=== PATIENT | female | born 1990 | race Caucasian/White ===

== ENCOUNTER 2017-04-03 10:24 | Emergency (ER) | payer OTHER ==
[2017-04-03 10:40] VITALS: BP 111/61
--- NOTE | 2017-04-03 11:19 | UC ---
Throat Pain/Nasal Chava HPI - HPI Summary HPI Summary: 22 yo female with sore throat and fever x 1 day no n/v/d hx DM type 1 PCN and Ceph allergy - History of Current Complaint Chief Complaint: UCRespiratory Stated Complaint: THROAT,FEVER Time Seen by Provider: 04/03/17 10:42 Hx Obtained From: Patient Hx Last Menstrual Period: 03/22/17 Onset/Duration: Gradual Onset, Lasting Hours Severity: Moderate Pain Intensity: 4 Pain Scale Used: 0-10 Numeric Cough: None Associated Signs & Symptoms: Positive: Fever Related History: Prior ENT Surgery - thyroid nodule - Epiglottits Risk Factors Epiglottis Risk Factors: Negative - Allergies/Home Medications Allergies/Adverse Reactions: Allergies Allergy/AdvReac Type Severity Reaction Status Date / Time Amoxicillin Allergy Intermediate Rash Verified 04/03/17 10:40 Vancomycin Allergy Intermediate redness/itc Verified 04/03/17 10:40 bronson Cefaclor [From Ceclor] Allergy Unknown "swelling Verified 04/03/17 10:40 of blood vessels" PMH/Surg Hx/FS Hx/Imm Hx Previously Healthy: Yes Endocrine History: Diabetes - Surgical History Surgical History: Yes Surgery Procedure, Year, and Place: x2. partial thyroidectomy 03/02 - Family History Known Family History: Positive: Diabetes, Other - Mom asthma Negative: Cardiac Disease, Hypertension - Social History Alcohol Use: Rare Substance Use Type: None Smoking Status (MU): Light Every Day Tobacco Smoker Type: Cigarettes Amount Used/How Often: 1-2cig per day Household Exposure Type: Cigarettes - Immunization History Most Recent Influenza Vaccination: yes [id number] Review of Systems Constitutional: Fever Skin: Negative Eyes: Negative ENT: Sore Throat Respiratory: Negative Cardiovascular: Negative Gastrointestinal: Negative Genitourinary: Negative Motor: Negative Neurovascular: Negative Musculoskeletal: Negative Neurological: Negative Psychological: Negative All Other Systems Reviewed And Are Negative: Yes Physical Exam Triage Information Reviewed: Yes Appearance: Well-Appearing, No Pain Distress, Well-Nourished Vital Signs: Initial Vital Signs Temp 99 F 04/03/17 10:35 Pulse 100 04/03/17 10:35 Resp 16 04/03/17 10:35 BP 111/61 04/03/17 10:35 Pulse Ox 99 04/03/17 10:35 Vital Signs Reviewed: Yes Eyes: Positive: Conjunctiva Clear ENT: Positive: Hearing grossly normal, Pharyngeal erythema, Tonsillar swelling. Negative: Nasal congestion, Nasal drainage, Tonsillar exudate, Trismus, Muffled/hoarse voice Neck: Positive: Supple, Nontender, Enlarged Nodes @ - ant cerv (mild) Respiratory: Positive: Lungs clear, Normal breath sounds, No respiratory distress Cardiovascular: Positive: RRR, No Murmur Musculoskeletal: Positive: ROM Intact, No Edema Neurological: Positive: Alert Psychological Exam: Normal Skin Exam: Normal Throat Pain/Nasal Course/Dx - Course Course Of Treatment: RS (+) - Differential Dx/Diagnosis Provider Diagnoses: strep throat Discharge - Discharge Plan Condition: Stable Disposition: HOME Prescriptions: Clarithromycin TAB* [Biaxin 500 MG TAB*] 500 mg PO BID #20 tab Patient Education Materials: Strep Throat (ED) Forms: *Work Release Referrals: Clarice Danielle PA [Primary Care Provider] - Additional Instructions: recheck in 3 days if not better
== END 2017-04-03 11:21 | disposition home or self-care (01) ==
LOC: UCCORT 10:24
DX: J02.0 Streptococcal pharyngitis (principal); E10.8 Type 1 diabetes mellitus with unspecified complications; Z88.1 Allergy status to other antibiotic agents; E89.0 Postprocedural hypothyroidism; F17.210 Nicotine dependence, cigarettes, uncomplicated
CPT/HCPCS: 87651; 99212; G0463

== ENCOUNTER 2017-04-11 10:18 | Emergency (ER) | payer OTHER ==
--- NOTE | 2017-04-11 11:46 | UC ---
Throat Pain/Nasal Chava HPI - HPI Summary HPI Summary: here on 04/03 and diagnosed with strep throat, is on clindamycin for it. States pain went away for 3-4 days, but now pain returning. (+) strep here with Dr Arvizu and now with throat pain denies previous mono [ End ] - History of Current Complaint Chief Complaint: UCRespiratory Stated Complaint: RECHECK THROAT Time Seen by Provider: 04/11/17 11:44 Hx Obtained From: Patient Hx Last Menstrual Period: 03/24/17 Cough: Nonproductive - Allergies/Home Medications Allergies/Adverse Reactions: Allergies Allergy/AdvReac Type Severity Reaction Status Date / Time Amoxicillin Allergy Intermediate Rash Verified 04/11/17 11:30 Vancomycin Allergy Intermediate redness/itc Verified 04/11/17 11:30 bronson Cefaclor [From Ceclor] Allergy Unknown "swelling Verified 04/11/17 11:30 of blood vessels" Home Medications: Home Medications Acetaminophen [Tylenol] 4 tab PO ONCE PRN 04/11/17 [History Confirmed 04/11/17] Ibuprofen [Advil] 600 mg PO ONCE PRN 04/11/17 [History Confirmed 04/11/17] PMH/Surg Hx/FS Hx/Imm Hx Previously Healthy: Yes - Surgical History Surgical History: Yes Surgery Procedure, Year, and Place: x2. partial thyroidectomy 03/02 - Family History Known Family History: Positive: Diabetes, Other - Mom asthma Negative: Cardiac Disease, Hypertension - Social History Occupation: Employed Full-time Lives: With Family Alcohol Use: Rare Substance Use Type: None Smoking Status (MU): Former Smoker Type: Cigarettes Amount Used/How Often: 1-2cig per day Have You Smoked in the Last Year: Yes When Did the Patient Quit Smoking/Using Tobacco: 1 month ago Household Exposure Type: Cigarettes - Immunization History Most Recent Influenza Vaccination: yes [id number] season Review of Systems Constitutional: Fatigue Skin: Negative Eyes: Negative ENT: Sore Throat Respiratory: Negative Cardiovascular: Negative Gastrointestinal: Negative Genitourinary: Negative Motor: Negative Neurovascular: Negative Musculoskeletal: Negative Neurological: Negative Psychological: Negative All Other Systems Reviewed And Are Negative: Yes Physical Exam Triage Information Reviewed: Yes Appearance: Well-Appearing, No Pain Distress Vital Signs: Initial Vital Signs Temp 98.2 F 04/11/17 11:34 Pulse 85 04/11/17 11:34 Resp 16 04/11/17 11:34 BP 113/62 04/11/17 11:34 Pulse Ox 99 04/11/17 11:34 Vital Signs Reviewed: Yes Eye Exam: Normal ENT Exam: Normal ENT: Positive: Pharyngeal erythema, TMs normal. Negative: Tonsillar exudate Dental Exam: Normal Neck exam: Normal Neck: Positive: Supple, Enlarged Nodes @ - right anterior cervical, Other: - neg kernig Respiratory Exam: Normal Cardiovascular Exam: Normal Abdominal Exam: Normal Musculoskeletal Exam: Normal Neurological Exam: Normal Psychological Exam: Normal Skin Exam: Normal Throat Pain/Nasal Course/Dx - Course Course Of Treatment: see d/c instructions --- resistance to clinda ? mono ? check labs - Differential Dx/Diagnosis Differential Diagnosis/HQI/PQRI: Laryngitis, Mononucleosis, Pharyngitis, Sinusitis, Tonsillitis, URI Provider Diagnoses: Pharyngitis Discharge - Discharge Plan Condition: Good Disposition: HOME Prescriptions: Azithromyxin MAXIMILIANO (NF) [Z-Maximiliano (Zithromax) 250 mg tabs #6] 2 tab PO .TODAY, THEN 1 DAILY #6 tab Magic Mouth Was-ADITI/MAAL/LIDO* 5 ml SWISH SPIT QID #100 ml Patient Education Materials: Pharyngitis (ED) Forms: *Work Release Referrals: Clarice Danielle PA [Primary Care Provider] - 3 Days Additional Instructions: As we discussed you are bring treated for strep at this time but have a sore throat therefore we are testing for you for mono. If your mono test is (+) then you have a viral illness and no antibiotics can help. If your mono test is negative and you still have pain at the completion of antibiotics then you at that time may start the z pack,
[2017-04-11 11:49] VITALS: BP 113/62
[2017-04-11 14:02] LABS: Hematocrit 40 % (35-47); Hemoglobin 13.1 g/dl (12.0-16.0); Mean Corpuscular HGB Conc 33 g/dl (31-36); Mean Corpuscular Hemoglobin 30 pg (27-31); Mean Corpuscular Volume 90 fL (80-97); Mean Platelet Volume 8 um3 (7.4-10.4); Red Blood Count 4.38 10^6/ul (4.0-5.4); Red Cell Distribution Width 13 % (10.5-15); White Blood Count 7.3 10^3/ul (3.5-10.8)
[2017-04-11 14:07] LABS: Add Diff/Slide Review? Slide Review Added; Comments Flag Yes
[2017-04-11 14:36] LABS: Albumin 3.9 g/dL (3.2-5.2); BUN/Creatinine Ratio 16.4 (8-20); Calcium 8.4 mg/dL (8.6-10.3); EGFR African American 137.9 (>60); EGFR Non-African American 107.2 (>60); Globulin 2.4 g/dL (2-4); Potassium 4.5 mmol/L (3.5-5.0); Total Bilirubin 0.4 mg/dL (0.2-1.0); Total Protein 6.3 g/dL (6.4-8.9)
[2017-04-11 17:39] LABS: Mono Internal Control QC Line Present
--- NOTE | 2017-04-12 10:32 | UC ---
Progress - Progress Note Progress Note: CALL PATIENT. ELEVATED GLUCOSE. FOLLOW UP WITH PCP/ER.
== END 2017-04-11 12:26 | disposition home or self-care (01) ==
LOC: UCCORT 10:18
DX: J02.9 Acute pharyngitis, unspecified (principal); E89.0 Postprocedural hypothyroidism; Z88.1 Allergy status to other antibiotic agents; Z87.891 Personal history of nicotine dependence
CPT/HCPCS: 36415; 80053; 85025; 86308; 86663; 99212; G0463

== ENCOUNTER 2017-08-14 20:55 | Emergency (ER) | payer OTHER ==
--- NOTE | 2017-08-14 21:24 | UC ---
Lower Extremity/Ankle HPI - HPI Summary HPI Summary: 27 YEAR OLD FEMALE PRESENTS WITH LEFT ANKLE PAIN WITH NO TRAUMA. - History of Current Complaint Stated Complaint: LEFT ANKLE PAIN Time Seen by Provider: 08/14/17 20:58 Hx Obtained From: Patient Hx Last Menstrual Period: 03/24/17 Onset/Duration: Sudden Onset Severity Initially: Moderate Severity Currently: Moderate Pain Scale Used: 0-10 Numeric - 4 - Allergies/Home Medications Allergies/Adverse Reactions: Allergies Allergy/AdvReac Type Severity Reaction Status Date / Time Amoxicillin Allergy Intermediate Rash Verified 08/14/17 21:33 Vancomycin Allergy Intermediate redness/itc Verified 08/14/17 21:33 bronson Cefaclor [From Ceclor] Allergy Unknown "swelling Verified 08/14/17 21:33 of blood vessels" PMH/Surg Hx/FS Hx/Imm Hx Previously Healthy: Yes - Surgical History Surgical History: Yes Surgery Procedure, Year, and Place: x2. partial thyroidectomy 03/02 - Family History Known Family History: Positive: Diabetes, Other - Mom asthma Negative: Cardiac Disease, Hypertension - Social History Alcohol Use: Rare Substance Use Type: None Smoking Status (MU): Former Smoker Type: Cigarettes Amount Used/How Often: 1-2cig per day Have You Smoked in the Last Year: Yes When Did the Patient Quit Smoking/Using Tobacco: 1 month ago Household Exposure Type: Cigarettes - Immunization History Most Recent Influenza Vaccination: yes [id number] Review of Systems Constitutional: Negative Skin: Negative Eyes: Negative ENT: Negative Respiratory: Negative Cardiovascular: Negative Gastrointestinal: Negative Genitourinary: Negative Motor: Negative Neurovascular: Negative Musculoskeletal: Other: - left ankle pain Neurological: Negative Psychological: Negative All Other Systems Reviewed And Are Negative: Yes Physical Exam Triage Information Reviewed: Yes Vital Signs Reviewed: Yes Eye Exam: Normal ENT Exam: Normal Dental Exam: Normal Neck exam: Normal Neck: Positive: 1 Respiratory Exam: Normal Cardiovascular Exam: Normal Abdominal Exam: Normal Musculoskeletal: Positive: Other: - left ankle pain Neurological Exam: Normal Psychological Exam: Normal Skin Exam: Normal Lower Extremity Course/Dx - Differential Dx/Diagnosis Provider Diagnoses: left ankle sprain Discharge - Discharge Plan Condition: Stable Disposition: HOME Prescriptions: Ibuprofen TAB* [Motrin TAB* 800 MG] 800 mg PO Q6H #30 tab Patient Education Materials: Ankle Sprain (ED) Forms: *Work Release Referrals: Terry Peña MD [Medical Doctor] - Dylan Moran [Physical Therapist] - Clarice Danielle PA [Primary Care Provider] -
--- NOTE | 2017-08-14 21:25 | RAD ---
INDICATION: Left ankle injury COMPARISON: None TECHNIQUE: AP, lateral, and oblique views were obtained. FINDINGS: The bony structures, joint spaces, and soft tissues are normal for age. IMPRESSION: NEGATIVE EXAMINATION.
[2017-08-14 21:33] VITALS: BP 121/77
== END 2017-08-14 21:50 | disposition home or self-care (01) ==
LOC: UCCORT 20:55
DX: S93.402A Sprain of unspecified ligament of left ankle, initial encounter (principal); X58.XXXA Exposure to other specified factors, initial encounter; Y93.9 Activity, unspecified; Y92.9 Unspecified place or not applicable; Z88.1 Allergy status to other antibiotic agents; Z87.891 Personal history of nicotine dependence
CPT/HCPCS: 99212; G0463

== ENCOUNTER 2017-09-24 12:30 | Emergency (ER) | payer OTHER ==
[2017-09-24 14:35] VITALS: BP 114/60
--- NOTE | 2017-09-24 14:52 | UC ---
Respiratory Complaint HPI - HPI Summary HPI Summary: Pt c/o productive cough, nasal congestion X 1 week. Denies fever SOB, wheezing or hemoptysis - History of Current Complaint Chief Complaint: UCRespiratory Stated Complaint: COUGH,NAUSEA Time Seen by Provider: 09/24/17 14:36 Hx Obtained From: Patient Hx Last Menstrual Period: unknown ?: No Onset/Duration: Gradual Onset, Lasting Weeks - 1, Still Present Severity Initially: Mild Severity Currently: Mild Character: Cough: Productive, Sputum Description: - yellow Aggravating Factors: Recumbent Position Associated Signs And Symptoms: Positive: Wheezing, URI, Nasal Congestion - Risk Factors Pulmonary Embolism Risk Factors: Negative Cardiac Risk Factors: Negative Pseudomonas Risk Factors: Negative Tuberculosis Risk Factors: Negative - Allergies/Home Medications Allergies/Adverse Reactions: Allergies Allergy/AdvReac Type Severity Reaction Status Date / Time Amoxicillin Allergy Intermediate Rash Verified 09/24/17 14:35 Vancomycin Allergy Intermediate redness/itc Verified 09/24/17 14:35 bronson Cefaclor [From Ceclor] Allergy Unknown "swelling Verified 09/24/17 14:35 of blood vessels" Ethanol [From Robitussin] AdvReac Nausea Verified 09/24/17 14:43 Guaifenesin [From Robitussin] AdvReac Nausea Verified 09/24/17 14:43 Home Medications: Home Medications Dextromethorphan-Phenylephrine [Robitussin Cold+Flu Dayti 10-5-325 mg] 1 dose PO DAILY PRN 09/24/17 [History Confirmed 09/24/17] PMH/Surg Hx/FS Hx/Imm Hx Previously Healthy: Yes Endocrine History: Diabetes - Surgical History Surgical History: Yes Surgery Procedure, Year, and Place: x2. partial thyroidectomy 03/02 - Family History Known Family History: Positive: Diabetes, Other - Mom asthma Negative: Cardiac Disease, Hypertension - Social History Occupation: Employed Full-time Lives: With Family Alcohol Use: Rare Substance Use Type: None Smoking Status (MU): Former Smoker Type: Cigarettes Amount Used/How Often: 1-2cig per day Have You Smoked in the Last Year: Yes When Did the Patient Quit Smoking/Using Tobacco: 1 month ago Household Exposure Type: Cigarettes - Immunization History Most Recent Influenza Vaccination: yes [id number] Vaccination Up to Date: No Review of Systems Constitutional: Negative Skin: Negative Eyes: Negative ENT: Negative Respiratory: Cough Cardiovascular: Negative Gastrointestinal: Negative Genitourinary: Negative Motor: Negative Neurovascular: Negative Musculoskeletal: Negative Neurological: Negative Psychological: Negative Is Patient Immunocompromised?: No All Other Systems Reviewed And Are Negative: Yes Physical Exam Triage Information Reviewed: Yes Appearance: Well-Appearing Vital Signs: Initial Vital Signs Temp 98.1 F 09/24/17 14:26 Pulse 70 09/24/17 14:26 Resp 18 09/24/17 14:26 BP 114/60 09/24/17 14:26 Pulse Ox 97 09/24/17 14:26 Vital Signs Reviewed: Yes Eye Exam: Normal ENT Exam: Normal ENT: Positive: Nasal congestion Dental Exam: Normal Neck exam: Normal Respiratory Exam: Normal Cardiovascular Exam: Normal Musculoskeletal Exam: Normal Neurological Exam: Normal Psychological Exam: Normal Skin Exam: Normal UC Diagnostic Evaluation - Laboratory O2 Sat by Pulse Oximetry: 97 Respiratory Course/Dx - Differential Dx/Diagnosis Differential Diagnosis/HQI/PQRI: Bronchitis, Other - URI Provider Diagnoses: URI. Cough Discharge - Discharge Plan Condition: Stable Disposition: HOME Prescriptions: Albuterol HFA INHALER* [Ventolin HFA Inhaler*] 1 - 2 puff INH Q6H PRN #1 mdi PRN Reason: Sob/Wheezing Benzonatate CAP* [Tessalon 100 MG CAP*] 100 mg PO Q8H PRN #15 cap PRN Reason: Cough predniSONE TAB* [Deltasone TAB*] 30 mg PO DAILY #12 tab Patient Education Materials: Acute Cough (ED) Forms: *Work Release Referrals: Tanya Ernst MD [Primary Care Provider] - If Needed
== END 2017-09-24 15:02 | disposition home or self-care (01) ==
LOC: UCCORT 12:30
DX: J06.9 Acute upper respiratory infection, unspecified (principal); R05 Cough; Z87.891 Personal history of nicotine dependence; Z77.22 Contact with and (suspected) exposure to environmental tobacco smoke (acute) (chronic)
CPT/HCPCS: 99212; G0463

== ENCOUNTER 2017-11-25 21:00 | Emergency (ER) | payer OTHER ==
--- OUTSIDE RECORDS SUMMARY | 2017-11-25 21:09 | XMS REPORT ---
:1990 External Reference #:[id number] Author Organization [facility] Address [address] [place] [id number] Phone [phone] Care Team Providers Name Role Phone Aretha Campuzano M.D. Primary Care Physician Unavailable Payers Type Date Identification Numbers Payment Provider Subscriber Commercial Effective: Policy Number: Jamin Azar 2009 [id number] mobintent Group Number: ABY # [id number] [address] Group Name: [id number] [place] [address] PayID: [id number] Problems Description No Information Social History Description No Information Available Allergies, Adverse Reactions, Alerts Date Description Reaction Status Severity Comments 04/25/2010 ceclor active 04/25/2010 Amoxicillin active Medications Description No Information Medications Administered in Office Medication Date Status Form Strength Qnty SIG Indications Ordering Provider Injection Administered Injection Dede Gutierrez M.D. Injection Administered Injection Dede Gutierrez M.D. Injection Administered Injection Dede Gutierrez M.D. Injection Administered Injection Dede Gutierrez M.D. Injection Administered Injection Dede Gutierrez M.D. Injection Administered Injection Dede Gutierrez M.D. Injection Administered Injection Dede Gutierrez M.D. Injection Administered Injection Dede M Fausto Gutierrez M.D. Results Description No Information Procedures Date CPT Code Description Status 01/18/2011 61388 Injection Completed 07/13/2010 37345 Injection Completed 07/06/2010 84209 Injection Completed 06/22/2010 66481 Injection Completed 06/15/2010 63511 Injection Completed 06/08/2010 79799 Injection Completed 06/01/2010 00972 Injection Completed 05/25/2010 80989 Injection Completed 05/23/2010 60562 Extract 1-10 Completed 05/02/2010 90029 Skin Test Scratch # Of Units ____ Completed 04/25/2010 16806 Pre PFT Completed Encounters Type Date Location Provider CPT E/M Dx Office Visit 04/25/2010 1:20p [facility] Dede Gutierrez M.D. [id number] [phone] V15.04 493.90 Plan of Care Future Appointment(s):11/21/2017 1:20 pm - Kael Snyder M.D. at [facility]
[2017-11-25 21:23] VITALS: BP 126/80
--- NOTE | 2017-11-25 21:26 | UC ---
Throat Pain/Nasal Hcava HPI - HPI Summary HPI Summary: 27 female presents to with complaints of sore throat, nasal congestion, headache and feeling "Congested" for the past week. Has been taking cold and sinus OTC medications and ibuprofen with some relief. No fever/chills. Children have been sick. Mild cough with some production. No other complaints. PMHx includes Type I DM and thyroid disease. IS concerned she has strep and would like to be tested. - History of Current Complaint Chief Complaint: UCGeneralIllness Stated Complaint: THROAT COMPLAINT Time Seen by Provider: 11/25/17 21:07 Hx Obtained From: Patient Hx Last Menstrual Period: 2 WKS AGO Onset/Duration: Sudden Onset, Lasting Days, Still Present Severity: Moderate Pain Intensity: 6 Pain Scale Used: 0-10 Numeric Cough: Productive Associated Signs & Symptoms: Positive: Dysphagia, Sinus Discomfort, Nasal Discharge, Other - ear ache bilateral - Allergies/Home Medications Allergies/Adverse Reactions: Allergies Allergy/AdvReac Type Severity Reaction Status Date / Time amoxicillin Allergy Rash Verified 11/25/17 21:13 cefaclor Allergy Unknown Verified 11/25/17 21:13 Reaction Details guaifenesin [From Robitussin] Allergy Nausea Verified 11/25/17 21:13 shellfish derived Allergy Hives Verified 11/25/17 21:13 vancomycin Allergy Rash And Verified 11/25/17 21:13 Itching Home Medications: Home Medications Levothyroxine Sodium [Synthroid] 200 mcg PO DAILY 11/25/17 [History Confirmed ] PMH/Surg Hx/FS Hx/Imm Hx Endocrine History: Diabetes - type I, Thyroid Disease Psychological History: Anxiety, Depression - Surgical History Surgical History: Yes Surgery Procedure, Year, and Place: x2. partial thyroidectomy 03/02 - Family History Known Family History: Positive: Diabetes, Other - Mom asthma Negative: Cardiac Disease, Hypertension - Social History Alcohol Use: Rare Substance Use Type: None Smoking Status (MU): Former Smoker Type: Cigarettes Amount Used/How Often: 1-2cig per day Have You Smoked in the Last Year: Yes When Did the Patient Quit Smoking/Using Tobacco: 9 M0S Household Exposure Type: Cigarettes - Immunization History Most Recent Influenza Vaccination: yes [id number] season Vaccination Up to Date: No Review of Systems Constitutional: Negative ENT: Sore Throat, Ear Ache, Nasal Discharge Respiratory: Cough Cardiovascular: Negative Gastrointestinal: Negative Neurological: Headache All Other Systems Reviewed And Are Negative: Yes Physical Exam Triage Information Reviewed: Yes Appearance: Well-Appearing - sounds congested/slightly hoarse when speaking, No Pain Distress, Well-Nourished Vital Signs: Initial Vital Signs Temp 97.7 F 11/25/17 21:16 Pulse 91 11/25/17 21:16 Resp 18 11/25/17 21:16 BP 126/80 11/25/17 21:16 Pulse Ox 100 11/25/17 21:16 Vital Signs Reviewed: Yes Eyes: Positive: Conjunctiva Clear ENT: Positive: Hearing grossly normal, Pharyngeal erythema, TMs normal - serous effusion mild bl TM, Uvula midline. Negative: TM bulging, TM dull, TM red, Tonsillar swelling, Tonsillar exudate Dental: Negative: Percussion Tenderness @, Cervical Lymphadenopathy Neck: Positive: Supple, Nontender, No Lymphadenopathy Respiratory: Positive: Chest non-tender, Lungs clear, Normal breath sounds, No respiratory distress, No accessory muscle use Cardiovascular: Positive: RRR, No Murmur, Pulses Normal Abdomen Description: Positive: Nontender, Soft Bowel Sounds: Positive: Present Musculoskeletal: Positive: Strength Intact Neurological Exam: Normal Skin Exam: Normal Throat Pain/Nasal Course/Dx - Course Course Of Treatment: strep culture obtianed and negative. normal vitals. appears to be suffering URI. suggested symptomatic measures, saline rinses, flonase, ibuprofen, claritinD fluids rest and vitamins. aware of worsening signs and symptoms to watch out for. no other concerns at this time. follow up. - Differential Dx/Diagnosis Differential Diagnosis/HQI/PQRI: Mononucleosis, Pharyngitis, URI Provider Diagnoses: URI Discharge - Discharge Plan Condition: Good Disposition: HOME Prescriptions: Fluticasone NASAL SPRAY 50MCG* [Flonase NASAL SPRAY 50MCG*] 2 spray BOTH NARES DAILY #1 btl Patient Education Materials: Upper Respiratory Infection (ED) Forms: *Work Release Referrals: Tanya Ernst MD [Primary Care Provider] - Additional Instructions: Increase fluid intake, get plenty of rest. Chloraseptic spray to help soothe sore throat. Salt water gargles, vitamins. Recommend mucinex and/or claritin to help with congestion. Nasal spray, as prescribed, to help with nasal congestion. Extra pillow at bedtime, hot showers. Follow up with PCP. Any new or worsening symptoms please seek medical attention, as discussed.
== END 2017-11-25 21:49 | disposition home or self-care (01) ==
LOC: UCCORT 21:00
DX: J06.9 Acute upper respiratory infection, unspecified (principal); E10.9 Type 1 diabetes mellitus without complications; Z96.41 Presence of insulin pump (external) (internal); E07.9 Disorder of thyroid, unspecified; F41.9 Anxiety disorder, unspecified; F32.9 Major depressive disorder, single episode, unspecified; Z88.1 Allergy status to other antibiotic agents; Z87.891 Personal history of nicotine dependence
CPT/HCPCS: 87651; 99212; G0463

== ENCOUNTER 2018-09-16 13:34 | Emergency (ER) | payer OTHER ==
[2018-09-16 14:53] VITALS: BP 125/65
--- NOTE | 2018-09-16 15:15 | UC ---
Respiratory Complaint HPI - HPI Summary HPI Summary: C/O cough x 2 weeks with coughing fits and post-tussive emesis. Occasional diarrhea. Hoarse voice, no sinus pain. Smoking 1/2 PPD. - History of Current Complaint Chief Complaint: UCGeneralIllness Stated Complaint: COUGH,VOMITING,DIARRHEA Time Seen by Provider: 09/16/18 15:08 Hx Obtained From: Patient Hx Last Menstrual Period: 09/15/18 ?: No Onset/Duration: Gradual Onset, Lasting Weeks - 2, Still Present Timing: Constant Severity Initially: Mild Severity Currently: Moderate Pain Intensity: 0 Character: Cough: Nonproductive Aggravating Factors: Deep Breaths, Recumbent Position Alleviating Factors: Nothing Associated Signs And Symptoms: Positive: Dyspnea, Wheezing, URI, Nasal Congestion, Hoarseness - Risk Factors Pulmonary Embolism Risk Factors: Smoking Cardiac Risk Factors: Smoking, Diabetes - Allergies/Home Medications Allergies/Adverse Reactions: Allergies Allergy/AdvReac Type Severity Reaction Status Date / Time amoxicillin Allergy Rash Verified 09/16/18 14:49 cefaclor Allergy Unknown Verified 09/16/18 14:49 Reaction Details guaifenesin [From Robitussin] Allergy Nausea Verified 09/16/18 14:49 shellfish derived Allergy Hives Verified 09/16/18 14:49 vancomycin Allergy Rash And Verified 09/16/18 14:49 Itching Home Medications: Home Medications Gabapentin CAP(*) [Neurontin 100 mg CAP(*)] 200 mg PO Q8H PRN 09/16/18 [History Confirmed 09/16/18] Lurasidone HCl [Latuda] 60 mg PO DAILY 09/16/18 [History Confirmed 09/16/18] PMH/Surg Hx/FS Hx/Imm Hx Endocrine History: Diabetes, Hypothyroidism - Surgical History Surgical History: Yes Surgery Procedure, Year, and Place: x2. partial thyroidectomy 03/02 - Family History Known Family History: Positive: Cardiac Disease, Diabetes, Other - Mom asthma Negative: Hypertension - Social History Occupation: Unemployed Lives: With Family Alcohol Use: Rare Substance Use Type: None Smoking Status (MU): Heavy Every Day Tobacco Smoker Type: Cigarettes Amount Used/How Often: 1/2ppd Have You Smoked in the Last Year: Yes When Did the Patient Quit Smoking/Using Tobacco: 9 M0S Household Exposure Type: Cigarettes Cessation Counseling: Patient Advised to Stop - Immunization History Most Recent Influenza Vaccination: yes [id number] Vaccination Up to Date: No Review of Systems All Other Systems Reviewed And Are Negative: Yes Constitutional: Positive: Fatigue ENT: Positive: Sore Throat, Nasal Discharge Respiratory: Positive: Shortness Of Breath, Cough Gastrointestinal: Positive: Vomiting, Diarrhea Is Patient Immunocompromised?: Yes - Type 1 Diabetes Physical Exam Triage Information Reviewed: Yes Appearance: No Pain Distress, Ill-Appearing, Obese Vital Signs: Initial Vital Signs Temp 97.2 F 09/16/18 14:48 Pulse 85 09/16/18 14:48 Resp 20 09/16/18 14:48 BP 125/65 09/16/18 14:48 Pulse Ox 100 09/16/18 14:48 Vital Signs Reviewed: Yes Eyes: Positive: Conjunctiva Inflamed ENT: Positive: Pharynx normal, Nasal congestion, TMs normal Neck exam: Normal Respiratory: Positive: Wheezing - Diffuse expiratory wheeze with coughing Cardiovascular Exam: Normal Musculoskeletal Exam: Normal Neurological Exam: Normal Psychological Exam: Normal Skin Exam: Normal UC Diagnostic Evaluation - Laboratory O2 Sat by Pulse Oximetry: 100 Respiratory Course/Dx - Differential Dx/Diagnosis Differential Diagnosis/HQI/PQRI: Asthma, Bronchitis, Lower Resp Infection, Sinusitis Provider Diagnosis: Upper respiratory infection, Bronchospasm, acute Discharge - Sign-Out/Discharge Documenting (check all that apply): Patient Departure All imaging exams completed and their final reports reviewed: No Studies - Discharge Plan Condition: Stable Disposition: HOME Prescriptions: Albuterol HFA INHALER* [Ventolin HFA Inhaler*] 2 puff INH Q4H PRN #1 mdi PRN Reason: Sob/Wheezing predniSONE TAB* [Deltasone 20 MG TAB*] 60 mg PO DAILY #18 tab Patient Education Materials: Upper Respiratory Infection (ED), Wheezing (ED), Prednisone (By mouth) Referrals: Tanya Ernst MD [Primary Care Provider] - Additional Instructions: Smoking Cessation Tricks. 1. Cut down by 1 cigarette per day every 2-3 days. Write the number of smokes for that day on the calendar. 2. Identify triggers to smoking: after meals, on the phone, in the car, with coffee, on breaks at work, etc. 3. Formulate a plan with a behavior to replace the smoking. Fireballs in the car , doodle pad on the phone, flavored creamer for the coffee, go for a walk after a meal or on break at work. 4. For stress smokes do deep breathing relaxation. Breath deep in through the nose hold the breath in for a few seconds then breath out slowly through the mouth. You will have to adjust your insulin doses while on the prednisone. - Billing Disposition and Condition Condition: STABLE Disposition: Home
== END 2018-09-16 15:42 | disposition home or self-care (01) ==
LOC: UCCORT 13:34
DX: J98.01 Acute bronchospasm (principal); J06.9 Acute upper respiratory infection, unspecified; F17.210 Nicotine dependence, cigarettes, uncomplicated; Z88.1 Allergy status to other antibiotic agents; Z88.8 Allergy status to other drugs, medicaments and biological substances; E11.9 Type 2 diabetes mellitus without complications
CPT/HCPCS: 99212; G0463

== ENCOUNTER 2019-02-06 14:13 | Emergency (ER) | payer OTHER ==
[2019-02-06 15:52] VITALS: BP 121/77
--- NOTE | 2019-02-06 16:18 | UC ---
UC General HPI - HPI Summary HPI Summary: sore throat, a little diarrhea and occasional "queezy stomach" x 1 week. hx DM, blood sugar only a little up with this. child has strep throat so pt wants to exclude that. - History of Current Complaint Chief Complaint: UCGeneralIllness Stated Complaint: SORE THROAT Hx Obtained From: Patient Hx Last Menstrual Period: [id number] Pain Intensity: 5 Associated Signs & Symptoms: Negative: Fever - Allergy/Home Medications Allergies/Adverse Reactions: Allergies Allergy/AdvReac Type Severity Reaction Status Date / Time amoxicillin Allergy Rash Verified 02/06/19 15:52 cefaclor Allergy Unknown Verified 02/06/19 15:52 Reaction Details guaifenesin [From Robitussin] Allergy Nausea Verified 02/06/19 15:52 shellfish derived Allergy Hives Verified 02/06/19 15:52 vancomycin Allergy Rash And Verified 02/06/19 15:52 Itching PMH/Surg Hx/FS Hx/Imm Hx Endocrine History: Diabetes, Thyroid Disease Neurological History: Seizures - Surgical History Surgical History: Yes Surgery Procedure, Year, and Place: x2. partial thyroidectomy 03/02 - Family History Known Family History: Positive: Cardiac Disease, Diabetes, Other - Mom asthma Negative: Hypertension - Social History Lives: With Family Alcohol Use: Rare Substance Use Type: None Smoking Status (MU): Light Every Day Tobacco Smoker Type: Cigarettes Amount Used/How Often: 1/2ppd Have You Smoked in the Last Year: Yes When Did the Patient Quit Smoking/Using Tobacco: 9 M0S Household Exposure Type: Cigarettes - Immunization History Most Recent Influenza Vaccination: yes [id number] Vaccination Up to Date: No Review of Systems All Other Systems Reviewed And Are Negative: Yes Constitutional: Negative: Fever ENT: Positive: Sore Throat. Negative: Ear Ache, Nasal Discharge, Sinus Congestion Respiratory: Negative: Shortness Of Breath, Cough Gastrointestinal: Positive: Diarrhea, Nausea Physical Exam Triage Information Reviewed: Yes Appearance: Well-Appearing Vital Signs: Initial Vital Signs Temp 97.4 F 02/06/19 15:48 Pulse 83 02/06/19 15:48 Resp 16 02/06/19 15:48 BP 121/77 02/06/19 15:48 Pulse Ox 98 02/06/19 15:48 Vital Signs Reviewed: Yes Eyes: Positive: Conjunctiva Clear ENT: Positive: Pharyngeal erythema - slight, Uvula midline. Negative: Nasal congestion, Nasal drainage, TMs normal, Trismus, Muffled voice, Hoarse voice Neck: Positive: Supple, Nontender, No Lymphadenopathy Respiratory: Positive: Lungs clear, Normal breath sounds Cardiovascular: Positive: RRR, No Murmur Abdomen Description: Positive: Nontender Musculoskeletal: Positive: ROM Intact Neurological: Positive: Alert Psychological: Positive: Age Appropriate Behavior Skin Exam: Normal Diagnostics - Laboratory Lab Results: rapid strep=negative Course/Dx - Diagnoses Provider Diagnosis: Pharyngitis, Diarrhea Discharge - Sign-Out/Discharge Documenting (check all that apply): Patient Departure All imaging exams completed and their final reports reviewed: No Studies - Discharge Plan Condition: Stable Disposition: HOME Patient Education Materials: Pharyngitis (ED), Acute Diarrhea (ED) Referrals: Tanya Ernst MD [Primary Care Provider] - Additional Instructions: Follow up with primary care if not better in 3-5 days or sooner if worse. - Billing Disposition and Condition Condition: STABLE Disposition: Home
== END 2019-02-06 16:44 | disposition home or self-care (01) ==
LOC: UCCORT 14:13
DX: J02.9 Acute pharyngitis, unspecified (principal); R19.7 Diarrhea, unspecified; E11.9 Type 2 diabetes mellitus without complications; Z88.8 Allergy status to other drugs, medicaments and biological substances; Z88.1 Allergy status to other antibiotic agents; Z88.0 Allergy status to penicillin; Z91.013 Allergy to seafood; F17.210 Nicotine dependence, cigarettes, uncomplicated
CPT/HCPCS: 87651; 99211; G0463

== ENCOUNTER 2019-03-13 14:21 | Emergency (ER) | payer OTHER ==
[2019-03-13 14:57] VITALS: BP 106/79
[2019-03-13] MEDS ORDERED: Albuterol 2.5 MG/3 ML NEB.SOL* (0.083%) INH ONE (15:04)
[2019-03-13] MEDS ORDERED: Ipratropium 0.5MG/2.5ML NEB* 0.5 MG/2.5 ML NEB.SOLN INH ONE (15:04)
--- NOTE | 2019-03-13 15:07 | UC ---
Respiratory Complaint HPI - HPI Summary HPI Summary: 28 yo female ill x 3-4 days Initially sore throat and nasal congestion Now with cough no f/c - History of Current Complaint Stated Complaint: ST,COUGH Hx Obtained From: Patient Hx Last Menstrual Period: [id number] Onset/Duration: Sudden Onset, Lasting Days Timing: Constant Severity Initially: Mild Severity Currently: Moderate Pain Scale Used: 0-10 Numeric Character: Cough: Nonproductive Aggravating Factors: Nothing Alleviating Factors: Nothing Associated Signs And Symptoms: Positive: Wheezing, Nasal Congestion Related History: Similar Episode/Dx as: - bronchitis - Allergies/Home Medications Allergies/Adverse Reactions: Allergies Allergy/AdvReac Type Severity Reaction Status Date / Time amoxicillin Allergy Rash Verified 03/13/19 14:57 cefaclor Allergy Unknown Verified 03/13/19 14:57 Reaction Details guaifenesin [From Robitussin] Allergy Nausea Verified 03/13/19 14:57 shellfish derived Allergy Hives Verified 03/13/19 14:57 vancomycin Allergy Rash And Verified 03/13/19 14:57 Itching Home Medications: Home Medications Phenylephrine/Dm/Acetaminop/GG [Severe Cold-Flu Caplet] 1 each PO DAILY PRN [History Confirmed 03/13/19] PMH/Surg Hx/FS Hx/Imm Hx Endocrine History: Diabetes, Hypothyroidism Cardiovascular History: Hypertension Respiratory History: Asthma, Bronchitis Neurological History: Seizures - Surgical History Surgical History: Yes Surgery Procedure, Year, and Place: x2. partial thyroidectomy 03/02 - Family History Known Family History: Positive: Cardiac Disease, Diabetes, Other - Mom asthma Negative: Hypertension - Social History Alcohol Use: Rare Substance Use Type: None Smoking Status (MU): Light Every Day Tobacco Smoker Type: Cigarettes Amount Used/How Often: 1/2ppd Have You Smoked in the Last Year: Yes When Did the Patient Quit Smoking/Using Tobacco: 9 M0S Household Exposure Type: Cigarettes Cessation Counseling: Patient Advised to Stop - Immunization History Most Recent Influenza Vaccination: yes [id number] Vaccination Up to Date: No Review of Systems All Other Systems Reviewed And Are Negative: Yes Constitutional: Positive: Fatigue Skin: Positive: Negative Eyes: Positive: Negative ENT: Positive: Sore Throat, Nasal Discharge Respiratory: Positive: Cough Cardiovascular: Positive: Negative Gastrointestinal: Positive: Negative Genitourinary: Positive: Negative Motor: Positive: Negative Neurovascular: Positive: Negative Musculoskeletal: Positive: Negative Neurological: Positive: Negative Psychological: Positive: Negative Physical Exam Triage Information Reviewed: Yes Appearance: Well-Appearing, No Pain Distress, Well-Nourished Vital Signs Reviewed: Yes Eyes: Positive: Conjunctiva Clear ENT: Positive: Hearing grossly normal, Pharyngeal erythema, Nasal congestion, Uvula midline. Negative: Nasal drainage, TMs normal, TM red, Tonsillar swelling , Tonsillar exudate, Trismus, Muffled voice, Hoarse voice, Sinus tenderness Dental Exam: Normal Neck: Positive: Supple, Nontender Respiratory: Positive: No respiratory distress, No accessory muscle use, Wheezing Cardiovascular: Positive: RRR, No Murmur Musculoskeletal: Positive: ROM Intact, No Edema Neurological: Positive: Alert Psychological: Positive: Normal Response To Family Skin Exam: Normal Re-Evaluation - Re-Evaluation First Eval Re-Evaluation Time: 15:49 Change: Improved - still wheezing but better air movement Respiratory Course/Dx - Differential Dx/Diagnosis Provider Diagnosis: Acute asthmatic bronchitis, Smoker Discharge - Sign-Out/Discharge Documenting (check all that apply): Patient Departure All imaging exams completed and their final reports reviewed: No Studies - Discharge Plan Condition: Stable Disposition: HOME Patient Education Materials: Acute Bronchitis (ED), How to Use a Metered-Dose Inhaler and a Spacer (ED) Referrals: Tanya Ernst MD [Primary Care Provider] - 3 Days (if not better) - Billing Disposition and Condition Condition: STABLE Disposition: Home
[2019-03-13] MEDS ORDERED: Albuterol HFA INHALER* 8 gm MDI INH ONE (15:47)
== END 2019-03-13 16:05 | disposition home or self-care (01) ==
LOC: UCCORT 14:21
DX: J45.909 Unspecified asthma, uncomplicated (principal); F17.210 Nicotine dependence, cigarettes, uncomplicated; E11.9 Type 2 diabetes mellitus without complications; I10 Essential (primary) hypertension
CPT/HCPCS: 99213; A9270-GY; G0463

== ENCOUNTER 2019-04-05 14:56 | Emergency (ER) | payer OTHER ==
[2019-04-05 15:56] VITALS: BP 118/71
--- NOTE | 2019-04-05 16:15 | UC ---
Complaint Female HPI - HPI Summary HPI Summary: \\Per RN traige: "complaints increase urinary frequency, with less volume and pain and end of urination for past 2 days." -Type I DM. has frequency but with little production. different from urine freq sx she has had when her BSs are elevated. -no f/c/body aches. no rash. - History Of Current Complaint Chief Complaint: UCGU Stated Complaint: URINARY Time Seen by Provider: 04/05/19 15:51 Hx Last Menstrual Period: 03/09/19 Pain Intensity: 5 - Allergies/Home Medications Allergies/Adverse Reactions: Allergies Allergy/AdvReac Type Severity Reaction Status Date / Time amoxicillin Allergy Rash Verified 04/05/19 15:56 cefaclor Allergy Unknown Verified 04/05/19 15:56 Reaction Details guaifenesin [From Robitussin] Allergy Nausea Verified 04/05/19 15:56 shellfish derived Allergy Hives Verified 04/05/19 15:56 vancomycin Allergy Rash And Verified 04/05/19 15:56 Itching Home Medications: Home Medications Naproxen Sodium [Naproxen 220 mg] 220 mg PO DAILY 04/05/19 [History Confirmed ] PMH/Surg Hx/FS Hx/Imm Hx Previously Healthy: Yes Endocrine History: Diabetes - Surgical History Surgical History: Yes Surgery Procedure, Year, and Place: x2. partial thyroidectomy 03/02 - Family History Known Family History: Positive: Cardiac Disease, Diabetes, Other - Mom asthma Negative: Hypertension - Social History Alcohol Use: Rare Substance Use Type: None Smoking Status (MU): Light Every Day Tobacco Smoker Type: Cigarettes Amount Used/How Often: 1/2ppd Have You Smoked in the Last Year: Yes When Did the Patient Quit Smoking/Using Tobacco: 9 M0S Household Exposure Type: Cigarettes - Immunization History Most Recent Influenza Vaccination: yes [id number] Vaccination Up to Date: No Review of Systems All Other Systems Reviewed And Are Negative: Yes Constitutional: Positive: Negative. Negative: Fever, Chills Skin: Positive: Negative Eyes: Positive: Negative ENT: Positive: Negative Respiratory: Positive: Negative Cardiovascular: Positive: Negative Gastrointestinal: Positive: Negative Genitourinary: Positive: Dysuria, Hematuria - very slight pink tint Motor: Positive: Negative Neurovascular: Positive: Negative Musculoskeletal: Positive: Negative Neurological: Positive: Negative Psychological: Positive: Negative Is Patient Immunocompromised?: No Physical Exam Triage Information Reviewed: Yes Appearance: Well-Appearing, No Pain Distress, Well-Nourished Vital Signs: Initial Vital Signs Temp 97.8 F 04/05/19 15:53 Pulse 86 04/05/19 15:53 Resp 16 04/05/19 15:53 BP 118/71 04/05/19 15:53 Pulse Ox 95 04/05/19 15:53 Vital Signs Reviewed: Yes Eye Exam: Normal ENT Exam: Normal ENT: Positive: Pharynx normal Neck exam: Normal Neck: Positive: Supple, Nontender, No Lymphadenopathy Respiratory Exam: Normal Respiratory: Positive: Lungs clear, Normal breath sounds, No respiratory distress, No accessory muscle use Cardiovascular Exam: Normal Cardiovascular: Positive: RRR Abdominal Exam: Normal Abdomen Description: Positive: Nontender, Soft. Negative: CVA Tenderness (R), CVA Tenderness (L), Distended, Guarding Musculoskeletal Exam: Normal Neurological Exam: Normal Psychological Exam: Normal Skin Exam: Normal Complaint Female Dx - Differential Dx/Diagnosis Differential Diagnosis/HQI/PQRI: Urinary Tract Infection, Other - hematuria Provider Diagnosis: Dysuria Discharge - Sign-Out/Discharge Documenting (check all that apply): Patient Departure All imaging exams completed and their final reports reviewed: No Studies - Discharge Plan Condition: Stable Disposition: HOME Prescriptions: Nitrofurantoin Monohyd/M-Cryst [Macrobid 100 mg Capsule] 100 mg PO BID #14 cap Patient Education Materials: Dysuria (ED) Referrals: Tanya Ernst MD [Primary Care Provider] - 1 Week Additional Instructions: Drink plenty of fluids, watch your blood sugars closely. Follow up sooner with fevers/chills/body aches. - Billing Disposition and Condition Condition: STABLE Disposition: Home
== END 2019-04-05 16:52 | disposition home or self-care (01) ==
LOC: UCCORT 14:56
DX: R30.0 Dysuria (principal); Z88.0 Allergy status to penicillin; Z88.1 Allergy status to other antibiotic agents; E11.9 Type 2 diabetes mellitus without complications; F17.210 Nicotine dependence, cigarettes, uncomplicated
CPT/HCPCS: 81003; 99212; G0463

== ENCOUNTER 2019-05-03 17:30 | Emergency (ER) | payer OTHER ==
--- OUTSIDE RECORDS SUMMARY | 2019-05-03 17:51 | XMS REPORT | Continuity of Care Document ---
:1990 External Reference #:[id number] Author Name Dony Potts MD (transmitted by agent of provider oTri Gutierrez) Address [address] [place] [address] Care Team Providers Name Role Phone Jhonatan Singh MD - Neurology Care Team Information Toe Former [phone] Tanya Ernst MD - Internal Medicine Care Team Information Toe Former Problems Active Problems Provider Date Iron deficiency anemia Zahra Chavez DO Onset: 03/14/2015 Malaise and fatigue Zahra Chavez DO Onset: 03/14/2015 Vitamin B deficiency Zahra Chavez DO Onset: 04/27/2015 Hypothyroidism Zahra Chavez DO Onset: 08/10/2015 Vitamin D deficiency Zahra Chavez DO Onset: 10/12/2015 Iron deficiency Zahra Chavez DO Onset: 01/25/2016 Type 1 diabetes mellitus Aretha Campuzano MD Onset: 08/20/2011 Abdominal pain Aretha Campuzano MD Onset: 08/20/2011 Acute bronchitis Millie Baxter FNP Onset: 07/17/2011 Gastroesophageal reflux disease Zahra Chavez DO Onset: 11/28/2018 Irritable bowel syndrome with diarrhea Zahra Chavez DO Onset: 11/28/2018 Social History Type Date Description Comments Sex Unknown Smokeless Tobacco Never Used Smokeless Tobacco ETOH Use Rarely consumes alcohol 2 x yearly Tobacco Use Start: Unknown Patient is a current started 18 , has quit smoker, smokes every intermittently. day smokes /2 ppd Recreational Drug Use Former Drug User marijuana teens Smoking Status Reviewed: 04/20/19 Patient is a current started 18 , has quit smoker, smokes every intermittently. day smokes 1/2 ppd Allergies, Adverse Reactions, Alerts Active Allergies Reaction Severity Comments Date Amoxicillin 07/12/2011 Penicillins 03/25/2015 Cephalosporins 03/25/2015 Shellfish-derived Products 03/25/2015 Cefaclor 03/25/2015 Vancomycin 03/25/2015 Shrimp 03/25/2015 Inactive Allergies NKDA 03/14/2015 Medications Active Medications SIG Qnty Indications Ordering Date Provider Citroma drink 1 bottle at 296ml R19.7 Katlyn, 04/20/2019 1.745GM/30ML 12pm (noon)the MD Dony Solution day before the procedure Dulcolax 4 tablets taken a 4tabs R19.7 Katlyn, 04/20/[address] 8pm the day MD Dony before the procedure Golytely drink half the 4000ml R19.7 Katlyn, 04/20/2019 236gm Solution evening before MD Dony Rec and half the morning of the procedure (1 cup every 10') Relion Ketone Use as Needed 50units Martha Song, 05/28/2017 Strip M.D. Bridget Glucagon Emergency 1 injection as 2units Martha Song, 02/14/2016 1mg needed M.D. Kit Freestyle use one strip to 300units Martha Song, 01/02/2016 test blood sugar M.D. 7 times a day Ergocalciferol 1 tablet by mouth 6caps Kathy, 10/13/2015 weekly DO Zahra [id number] Capsules Clindamycin HCL Take 1 Capsule By Unknown 300mg Mouth Every 6 Capsules Hours Until Gone Tylenol Extra 2 tabs by mouth Unknown Strength every 4 hours as 500mg Tablets needed for back pain Tums 1-2 tab by mouth Unknown 500mg Chewtabs four times a day heartburn Iron Infusion A/D Boufal Unknown Gabapentin take three DillTanya MD 600mg tablets every day Tablets as needed Admelog Inject 75 Units Unknown 100Unit/ML Beneath The Skin Solution Continuous Via Pump Max Daily Dose Of 75 Units Ortho Tri-Cyclen Lo 1 by mouth every Unknown day 0.18/0.215/0.25 mg-25 mcg Tablets Levothyroxine Sodium Daily Unknown 200mcg Tablets Levetiracetam 1 po in Am - 2 po Francisco Jhonatan, 750mg in PM(Genric For Tablets Lucy) Ibuprofen prn Clark, 600mg Tablets MD Jessica History Medications Protonix 1 tabl po qd 30tabs Zahra Chavez, DO 12/04/2018 - 20mg Tablets 04/20/2019 Medications Administered in Office Medication SIG Qnty Indications Ordering Provider Date Vitamin B12 Injection 1000 Zahra Chavez, DO 11/28/2018 mcg/Ml Injection Vitamin B12 Injection 1000 Zahra Chavez, DO 07/08/2018 mcg/Ml Injection Vitamin B12 Injection 1000 Zahra Chavez, DO 12/18/2017 mcg/Ml Injection Theraputic Or Diagnostic Zahra Chavez, DO 12/18/2017 Injection Injection Vitamin B12 Injection 1000 Oncology Nurse 09/18/2017 mcg/Ml Injection Theraputic Or Diagnostic Oncology Nurse 09/18/2017 Injection Injection Vitamin B12 Injection 1000 Oncology Nurse 09/02/2017 mcg/Ml Injection Theraputic Or Diagnostic Oncology Nurse 09/02/2017 Injection Injection Vitamin B12 Injection 1000 Zahra Chavez, DO 08/21/2017 mcg/Ml Injection Theraputic Or Diagnostic Zahra Chavez, DO 08/21/2017 Injection Injection Vitamin B12 Injection 1000 Oncology Nurse 07/15/2017 mcg/Ml Injection Theraputic Or Diagnostic Oncology Nurse 07/15/2017 Injection Injection Vitamin B12 Injection 1000 Zahra Chavez, DO 07/01/2017 mcg/Ml Injection Vitamin B12 Injection 1000 Oncology Nurse 03/29/2017 mcg/Ml Injection Vitamin B12 Injection 1000 Zahra Chavez, DO 03/15/2017 mcg/Ml Injection Vitamin B12 Injection 1000 Oncology Nurse 02/20/2017 mcg/Ml Injection Vitamin B12 Injection 1000 Oncology Nurse 02/14/2017 mcg/Ml Injection Vitamin B12 Injection 1000 Zahra Chavez, DO 02/06/2017 mcg/Ml Injection Vitamin B12 Injection 1000 Zahra Chavez, DO 12/19/2016 mcg/Ml Injection Vitamin B12 Injection 1000 Zahra Chavez, DO 11/28/2016 mcg/Ml Injection Vitamin B12 Injection 1000 Zahra Chavez, DO 11/14/2016 mcg/Ml Injection Vitamin B12 Injection 1000 Zahra Chavez, DO 10/03/2016 mcg/Ml Injection Vitamin B12 Injection 1000 Zahra Chavez, DO 02/20/2016 mcg/Ml Injection Vitamin B12 Injection 1000 Oncology Nurse 02/08/2016 mcg/Ml Injection Vitamin B12 Injection 1000 Zahra Chavez, DO 01/25/2016 mcg/Ml Injection Vitamin B12 Injection 1000 Oncology Nurse 01/19/2016 mcg/Ml Injection Vitamin B12 Injection 1000 Zahra Chavez, DO 01/04/2016 mcg/Ml Injection Vitamin B12 Injection 1000 Oncology Nurse 01/04/2016 mcg/Ml Injection Vitamin B12 Injection 1000 Oncology Nurse 12/16/2015 mcg/Ml Injection Vitamin B12 Injection 1000 Zahra Chavez, DO 12/16/2015 mcg/Ml Injection Vitamin B12 Injection 1000 Zahra Chavez, DO 10/12/2015 mcg/Ml Injection Vitamin B12 Injection 1000 Zahra Chavez, DO 09/14/2015 mcg/Ml Injection Vitamin B12 Injection 1000 Zahra Chavez, DO 09/14/2015 mcg/Ml Injection Vitamin B12 Injection 1000 Zahra Chavez, DO 08/10/2015 mcg/Ml Injection Immunizations CPT Code Status Date Vaccine Lot # [id number] Given 07/24/2010 flu vaccination 33867 Given 08/17/2009 flu vaccination 69576 Given 08/08/2009 H1N1 Immuniation Adminstration 35217 Given 08/08/2009 H1N1 Immuniation Adminstration Vital Signs Date Vital Result Comment 04/20/2019 4:42pm BP Systolic Sitting Left Arm 113 mmHg BP Diastolic Sitting Left Arm 79 mmHg Heart Rate 88 /min Respiratory Rate 14 /min Height 63 inches 5'3" per pt Weight 190.00 lb BMI (Body Mass Index) 33.7 kg/m2 BSA (Body Surface Area) 1.89 m2 [place] body weight in kilograms 52 kg O2 % BldC Oximetry 98 % 11/28/2018 3:15pm BP Systolic 116 mmHg BP Diastolic 72 mmHg Body Temperature 98.5 F Heart Rate 98 /min Respiratory Rate 18 /min Weight 194.12 lb O2 % BldC Oximetry 96 % Results Test Date Facility Test Result H/L Range Note Comprehensive 02/11/2019 [facility] Glucose 252 mg/dL High 74-106 1 Metabolic Panel [address] [place] [address] [phone] BUN 15 mg/dL Normal 7-18 Creatinine 0.9 mg/dL Normal 0.6-1.3 Glom Filtration Rate, Estimate >60 mL/min >60 If >60 mL/min >60 2 BUN/Creat 16.6 ratio Sodium 136 mmol/L Normal 136-145 Potassium 4.0 mmol/L Normal 3.5-5.1 Chloride 101 mmol/L Normal 98-107 Carbon Dioxide 23 mmol/L Normal 21-32 Anion Gap 12 mEq/L Normal 8-16 Calcium 9.3 mg/dL Normal 8.5-10.1 Total Protein 7.7 g/dL Normal 6.4-8.2 Albumin 4.0 g/dL Normal 3.4-5.0 Globulin 3.7 g/dL Normal 1.9-4.3 Alb/Glob 1.1 ratio Bilirubin,Total 0.5 mg/dL Normal 0.2-1.0 Sgot/Ast 7 U/L Low 15-37 3 SGPT/Alt 23 U/L Normal 12-78 Alkaline Phosphatase 68 U/L Normal 45-117 CBS W/Automated 02/11/2019 [facility] White Blood 11.6 K/uL High 3.1-10.[address] [place] [address] [phone] Red Blood Count 4.87 M/uL Normal 3.90-5.40 Hemoglobin 14.4 gm/dL Normal 11.6-15.8 Hematocrit 44.7 % Normal 36.0-46.1 Mean Cell Volume 91.8 fl Normal 80.9-99.0 Mean Corpuscular HGB 29.6 pg Normal 25.9-32.7 Mean Corpuscular HGB Conc 32.2 g/dL Normal 30.8-34.3 Platelet Count 347 K/uL Normal 155-360 Red Cell Distri Width SD 43.6 fl Normal 36-47 Red Cell Distri Width %CV 12.9 % Normal 11.7-14.4 Mean Platelet Volume 10.6 fl Normal 8.9-12.4 Neut% 68.9 % Normal 40.4-72.8 Lymph % 24.2 % Normal 20.0-42.0 Clayton % 5.3 % Normal 4.3-13.2 Eo% 1.0 % Normal 0.0-6.6 Bas% 0.3 % Normal 0.0-1.1 Immature Grans 0.3 % Normal 0.0-5.0 NRBC % 0.0 /100WBC < 10/ 100 WBC Neut# 7.97 K/uL High 1.8-7.0 Lymph # 2.80 K/uL Normal 1.0-4.0 Clayton # 0.61 K/uL Normal 0.3-0.9 Eos # 0.11 K/uL Normal 0.0-0.5 Baso # 0.03 K/uL Normal 0.0-0.1 Immature Grans Absolute 0.04 K/uL NRBC # 0.00 K/uL Iron-Tibc-%Sat 02/11/2019 [facility] Serum Iron 71 g/dL Normal 50-170 [address] [place], [place] [id number] [phone] Total Iron Binding Capacity 314 g/dL Normal 250-450 Transferrin %Saturation 23 % Normal 12-57 Laboratory test 02/11/2019 [facility] Ferritin 60 ng/mL Normal 8-252 finding [address] [place], [place] [id number] [phone] Vitamin B12 And 02/11/2019 [facility] Vitamin B12 406 pg/mL Normal 193-986 Folate [address] [place], [place] [address] [phone] Folic Acid 14.3 ng/mL Normal 3.1-17.5 Laboratory test 02/11/2019 [facility] Vitamin 21.2 Low 30.0-100.0 [address],25-Hydroxy ng/[place] [address] [phone] Comprehensive 11/24/2018 [facility] Glucose 392 High 74-106 5 Metabolic Panel [address] mg/[place] [address] [phone] BUN 13 mg/dL Normal 7-18 Creatinine 1.1 mg/dL 0.6-1.3 Glom Filtration Rate, Estimate >60 mL/min >60 If >60 mL/min >60 6 BUN/Creat 11.8 ratio Sodium 134 mmol/L Low 136-145 Potassium 3.8 mmol/L Normal 3.5-5.1 Chloride 101 mmol/L Normal 98-107 Carbon Dioxide 16 mmol/L Low 21-32 Anion Gap 17 mEq/L High 8-16 Calcium 8.3 mg/dL Low 8.5-10.1 Total Protein 7.5 g/dL Normal 6.4-8.2 Albumin 3.4 g/dL Normal 3.4-5.0 Globulin 4.1 g/dL Normal 1.9-4.3 Alb/Glob 0.8 ratio Bilirubin,Total 0.3 mg/dL Normal 0.2-1.0 Sgot/Ast 26 U/L Normal 15-37 SGPT/Alt 31 U/L Normal 12-78 Alkaline Phosphatase 102 U/L Normal 45-117 CBS W/Automated 11/24/2018 [facility] White Blood 6.8 K/uL Normal 3.1-10.[address] [place] [address] [phone] Red Blood Count 4.69 M/uL Normal 3.90-5.40 Hemoglobin 13.6 gm/dL Normal 11.6-15.8 Hematocrit 43.5 % Normal 36.0-46.1 Mean Cell Volume 92.8 fl Normal 80.9-99.0 Mean Corpuscular HGB 29.0 pg Normal 25.9-32.7 Mean Corpuscular HGB Conc 31.3 g/dL Normal 30.8-34.3 Platelet Count 300 K/uL Normal 155-360 Red Cell Distri Width SD 44.0 fl Normal 36-47 Red Cell Distri Width %CV 13.2 % Normal 11.7-14.4 Mean Platelet Volume 10.7 fL Normal 8.9-12.4 Neut% 69.4 % Normal 40.4-72.8 Lymph % 25.0 % Normal 20.0-42.0 Clayton % 4.3 % Normal 4.3-13.2 Eo% 1.0 % Normal 0.0-6.6 Bas% 0.3 % Normal 0.0-1.1 Neut# 4.69 K/uL Normal 1.8-7.0 Lymph # 1.69 K/uL Normal 1.0-4.0 Clayton # 0.29 K/uL Low 0.3-0.9 Eos # 0.07 K/uL Normal 0.0-0.5 Baso # 0.02 K/uL Normal 0.0-0.1 Iron-Tibc-%Sat 11/24/2018 [facility] Serum Iron 41 g/dL Low 50-170 [address] [place] [address] [phone] Total Iron Binding Capacity 312 g/dL Normal 250-450 Transferrin %Saturation 13 % Normal 12-57 Laboratory test 11/24/2018 [facility] Ferritin 109 ng/mL Normal 8-252 finding [address] [place] [address] [phone] Vitamin B12 And 11/24/2018 [facility] Vitamin B12 249 pg/mL Normal 193-986 Folate [address] [place], [place] [address] [phone] Folic Acid 10.8 ng/mL Normal 3.1-17.5 Laboratory 11/24/2018 [facility] Vitamin 17.9 Low 30.0-100.0 7 test finding [address],25-Hydroxy ng/mL [place], [place] [id number] [phone] 1 E53.9 E61.1 E03.9 2 Note: Persistent reduction for 3 months or more in an eGFR <60 mL/min/1.73 m2 defines CKD. Patients with eGFR values >/=60 mL/min/1.73 m2 may also have CKD if evidence of persistent proteinuria is present. The original MDRD equation for estimated GFR is not valid for patients less than 18 years of age. Additional information may be found at www.kdoqi.org. 3 Values below the stated reference ranges of AST and ALT can be seen in normal populations. Clinical correlation is suggested. 4 Vitamin D deficiency has been defined by the [place] [employer] and an Endocrine Society practice guideline as a level of serum 25-OH vitamin D less than 20 ng/mL (1,2). The Endocrine Society went on to further define vitamin D insufficiency as a level between 21 and 29 ng/mL (2). 1. IOM ([place] [employer]). 2010. Dietary reference intakes for calcium and D. [place]: The National Academies Press. 2. Krzysztof Evans, Adamaris GARCIA, et al. Evaluation, treatment, and prevention of vitamin D deficiency: an Endocrine Society clinical practice guideline. JCEM. 2010; 96(7):1911-30. Performed at: [address] [id number] Recreational Counselor: Annamarie Ceja MD, Phone: [phone] 5 E53.9, E61.1, E03.9 6 Note: Persistent reduction for 3 months or more in an eGFR <60 mL/min/1.73 m2 defines CKD. Patients with eGFR values >/=60 mL/min/1.73 m2 may also have CKD if evidence of persistent proteinuria is present. The original MDRD equation for estimated GFR is not valid for patients less than 18 years of age. Additional information may be found at www.kdoqi.org. 7 Vitamin D deficiency has been defined by the [place] [employer] and an Endocrine Society practice guideline as a level of serum 25-OH vitamin D less than 20 ng/mL (1,2). The Endocrine Society went on to further define vitamin D insufficiency as a level between 21 and 29 ng/mL (2). 1. IOM ([place] [employer]). 2010. Dietary reference intakes for calcium and D. [place]: The National Academies Press. 2. Dean SINGH, Krzysztof LOZANO, Adamaris GARCIA, et al. Evaluation, treatment, and prevention of vitamin D deficiency: an Endocrine Society clinical practice guideline. JCEM. 2010; 96(7):1911-30. Performed at: [address] [id number] Recreational Counselor: Annamarie Ceja MD, Phone: [phone] Procedures Date Code Description Status 11/28/2018 35081 Theraputic Or Diagnostic Injection Completed Medical Devices Description No Information Available Encounters Type Date Location Provider Dx Diagnosis Office Visit 04/20/2019 4:15p Dony Mata MD E61.1 Iron deficiency R11.2 Nausea with vomiting, unspecified R19.7 Diarrhea, unspecified Office Visit 11/28/2018 3:00p Oncology Office Kathy, E53.9 Vitamin B Zahra, DO deficiency, unspecified E55.9 Vitamin D deficiency, unspecified K58.0 Irritable bowel syndrome with diarrhea K21.9 Gastro-esophageal reflux disease without esophagitis Assessments Date Code Description Provider 04/20/2019 E61.1 Iron deficiency Dony Potts MD 04/20/2019 R11.2 Nausea with vomiting, unspecified Dony Potts MD 04/20/2019 R19.7 Diarrhea, unspecified Dony Potts MD 02/11/2019 E53.9 Vitamin B deficiency, unspecified BobobalJovant, DO 02/11/2019 E53.9 Vitamin B deficiency, unspecified Oncology Nurse 02/11/2019 E61.1 Iron deficiency Jovan Chavezt, DO 02/11/2019 E61.1 Iron deficiency Oncology Nurse 02/11/2019 E03.9 Hypothyroidism, unspecified BobobalGabbieZahra, DO 02/11/2019 E03.9 Hypothyroidism, unspecified Oncology Nurse 11/28/2018 E53.9 Vitamin B deficiency, unspecified BobobalGabbieZahra, DO 11/28/2018 E55.9 Vitamin D deficiency, unspecified Boufal, Zahra, DO 11/28/2018 K58.0 Irritable bowel syndrome with diarrhea Zahra Chavez, DO 11/28/2018 K21.9 Gastro-esophageal reflux disease without Zahra Chavez DO esophagitis Plan of Treatment Future Appointment(s):06/11/2019 1:15 pm - Dony Potts MD at GI04/29/2019 3:00 pm - Zahra Chavez DO at Oncology Office Functional Status Description No Information Available Mental Status Description No Information Available Referrals Refer to Dr Reason for Referral Status Appt Date Dony Potts MD NAUSEA /DEHYDRATION/POSS. CELIAC DISEASE Scheduled 01/[address] [address] [phone]
[2019-05-03 17:58] VITALS: BP 125/71
[2019-05-03] MEDS ORDERED: Neomyc/Polym/HC 1% OTIC SUSP* **OTIC BOTH EARS ONE (18:13)
[2019-05-03] MEDS ORDERED: DOXYcycline CAP(*) 100 MG PO ONE (18:13)
--- NOTE | 2019-05-03 18:16 | UC ---
Ear Complaint HPI - HPI Summary HPI Summary: 29-year-old woman comes in with a chief complaint of bilateral ear pain. Pain started about 6 days ago. Patient has anemia and sees a laborer wharf and mention this to her laborer wharf 4 days ago and was started on Levaquin by mouth. The ear pain is not improved sex gotten worse and now the pain is spreading and giving her a headache and neck pain and pain radiates also into the shoulders. Patient has not noticed any fevers although she took her temperature earlier and got a reading of 100.1. No fever here in clinic today. Patient's been taking ibuprofen and sometimes it helps and sometimes it doesn' t. She indicates her neck pain is somewhat variable. Pain does not radiate down into her thoracic or low back. Pain does radiate into the shoulders at its worse and sometimes there is not much neck pain. The headache is more occipital. Her laborer wharf noted that her right tonsil was swollen. Patient' s been able to get a follow-up with ENT Dr. Omalley scheduled for May 06, 2019. - History of Current Complaint Chief Complaint: UCGeneralIllness Stated Complaint: BILAT EAR PAIN,MUSCLE STIFFNESS IN NECK/SHOULDERS Time Seen by Provider: 05/03/19 17:50 Hx Last Menstrual Period: 04/30/19 Pain Intensity: 7 - Allergies/Home Medications Allergies/Adverse Reactions: Allergies Allergy/AdvReac Type Severity Reaction Status Date / Time amoxicillin Allergy Rash Verified 05/03/19 17:51 cefaclor Allergy Unknown Verified 05/03/19 17:51 Reaction Details guaifenesin [From Robitussin] Allergy Nausea Verified 05/03/19 17:51 shellfish derived Allergy Hives Verified 05/03/19 17:51 vancomycin Allergy Rash And Verified 05/03/19 17:51 Itching Home Medications: Home Medications Levofloxacin TAB* [Levaquin 500 Tab*] 1 tab DAILY 05/03/19 [History Confirmed ] PMH/Surg Hx/FS Hx/Imm Hx Previously Healthy: Yes Endocrine History: Diabetes, Hypothyroidism Neurological History: Seizures - Surgical History Surgical History: Yes Surgery Procedure, Year, and Place: x2. partial thyroidectomy 03/02 - Family History Known Family History: Positive: Cardiac Disease, Diabetes, Other - Mom asthma Negative: Hypertension - Social History Alcohol Use: Rare Substance Use Type: None Smoking Status (MU): Heavy Every Day Tobacco Smoker Type: Cigarettes Amount Used/How Often: 1/2 ppd Have You Smoked in the Last Year: Yes When Did the Patient Quit Smoking/Using Tobacco: 9 M0S Household Exposure Type: Cigarettes - Immunization History Most Recent Influenza Vaccination: yes [id number] Vaccination Up to Date: No Review of Systems All Other Systems Reviewed And Are Negative: Yes Constitutional: Positive: Other - SEE HPI Skin: Positive: Negative Eyes: Positive: Negative ENT: Positive: Ear Ache, Other - SEE HPI Respiratory: Positive: Negative Cardiovascular: Positive: Negative Gastrointestinal: Positive: Negative Motor: Positive: Negative Neurovascular: Positive: Negative Musculoskeletal: Positive: Other: - SEE HPI Neurological: Positive: Headache Psychological: Positive: Negative Is Patient Immunocompromised?: No Physical Exam Triage Information Reviewed: Yes Appearance: Well-Appearing, Well-Nourished, Pain Distress - MILD Vital Signs: Initial Vital Signs Temp 97.6 F 05/03/19 17:53 Pulse 87 05/03/19 17:53 Resp 16 05/03/19 17:53 BP 125/71 05/03/19 17:53 Pulse Ox 99 05/03/19 17:53 Vital Signs Reviewed: Yes Eye Exam: Normal Eyes: Positive: Conjunctiva Clear ENT: Positive: TMs normal - Right ear canal is slightly swollen and tender to palpation of the tragus and on otoscope exam. The left ear canal was not obviously swollen but it is tender on otoscopic exam. The eardrums are not erythematous I do not see pus behind the eardrums., Tonsillar swelling - RT TONSIL 2+, LT TONSIL 1+. Dental Exam: Normal Neck: Positive: Other: - Patient does have some decreased range of motion of her neck secondary to pain. She is able to bring her chin to her chest but declines full extension secondary to pain. Respiratory: Positive: Lungs clear, Normal breath sounds, No respiratory distress Cardiovascular: Positive: RRR Musculoskeletal: Positive: Strength Intact, ROM Intact Neurological: Positive: Alert, Muscle Tone Normal Psychological: Positive: Age Appropriate Behavior Skin Exam: Normal Ear Complaint Course/Dx - Course Course Of Treatment: Because the pain originated in the ears and the right ear canal is swollen in both ear canals are tender to palpation starting the patient on antibiotic eardrops. Take her off the Levaquin and switched over the doxycycline. She does have an appointment with ENT scheduled for May 06, 2019 I encouraged her to keep that appointment. However I did discuss signs and symptoms of meningitis with the patient and I let her know that if she got worse she needed to go for further evaluation and treatment in the emergency department. - Differential Dx/Diagnosis Provider Diagnosis: Acute pain of both ears, Headache, Neck pain Discharge - Sign-Out/Discharge Documenting (check all that apply): Patient Departure All imaging exams completed and their final reports reviewed: No Studies - Discharge Plan Condition: Stable Disposition: HOME Prescriptions: DOXYcycline CAP(*) [DOXYcycline 100MG CAP(*)] 100 mg PO BID #18 cap Patient Education Materials: Acute Headache (ED), Earache (ED), Acute Neck Pain (ED) Referrals: Tanya Ernst MD [Primary Care Provider] - Dave Omalley MD [Medical Doctor] - Additional Instructions: FOLLOW UP WITH ENT, DR OMALLEY, ON 05/06/19 SCHEDULED. GO TO THE EMERGENCY DEPARTMENT SOONER IF WORSE; FEVER, YOU FEEL ILL, PAIN, SIGNS OF MENINGITIS OR ANY QUESTIONS OR CONCERNS. - Billing Disposition and Condition Condition: STABLE Disposition: Home
== END 2019-05-03 18:28 | disposition home or self-care (01) ==
LOC: UCCORT 17:30
DX: H92.03 Otalgia, bilateral (principal); R51 Headache; M54.2 Cervicalgia; E11.9 Type 2 diabetes mellitus without complications; F17.210 Nicotine dependence, cigarettes, uncomplicated
CPT/HCPCS: 99213; A9270-GY; G0463